=== PATIENT | male | born 1960 | race Caucasian/White ===

== ENCOUNTER 2017-03-10 22:50 | Emergency (ER) | payer MEDICAID, OTHER ==
[2017-03-11 00:48] VITALS: BMI 23.3
[2017-03-11 01:03] VITALS: BP 148/100; PULSE 63; RESP 18; TEMP 98; O2SAT 99
--- NOTE | 2017-03-11 01:31 | ED PDOC ---
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 pt denies any trauma or injury. denies fever/chills. pt states pain is worse with ambulation and flexion of the knee. pt c/o pressure sensation along the anterior and posterior aspect of the radiating into the posterior calf. no medications have been taking for pain at home. pt was on coumadin for prior dvt but coumadin was stopped 6 months ago. no other complaints. (Farzaneh Sam) Past Medical History - Provider Review Nursing Documentation Reviewed: Yes - Travel History Have you recently traveled outside [place] w/in the past 3 mons?: No - Past History Past History: No Previous - Infectious Disease Hx of Infectious Diseases: None - Tetanus Immunization Tetanus Immunization: Unknown - Past Medical History Past Medical History: Unable to Obtain - Neurological Other/Comment: Brain Aneurysm - Psychiatric Hx Substance Use: No - Past Surgical History Past Surgical History: Unable to Obtain - Surgical History Other/Comment: Brain aneurysm repair - Anesthesia Hx Anesthesia: Yes Hx Anesthesia Reactions: No Hx Malignant Hyperthermia: No - Suicidal Assessment Feels Threatened In Home Enviroment: No <Farzaneh Sam - Last Filed: 03/11/17 02:19> Family/Social History - Physician Review Nursing Documentation Reviewed: Yes Family/Social History: Unknown Family HX Smoking Status: Current Some Days Smoker Hx Alcohol Use: Yes Hx Substance Use: No <Farzaneh Sam - Last Filed: 03/11/17 02:19> Allergies/Home Meds <Farzaneh Sam - Last Filed: 03/11/17 02:19> <Allan Holliday - Last Filed: 03/11/17 02:55> Allergies/Adverse Reactions: Allergies No Known Allergies Allergy (Verified 07/19/15 10:42) Review of Systems - Review of Systems Constitutional: absent: Fatigue, Fevers Respiratory: absent: SOB, Cough Cardiovascular: absent: Chest Pain, Palpitations Gastrointestinal: absent: Abdominal Pain, Nausea, Vomiting Musculoskeletal: Arthralgias. absent: Back Pain, Neck Pain Skin: absent: Rash, Pruritis Neurological: absent: Headache, Dizziness Psychiatric: absent: Anxiety, Depression <Farzaneh Sam - Last Filed: 03/11/17 02:19> Physical Exam Vital Signs Reviewed: Yes Temperature: Afebrile Blood Pressure: Hypertensive Pulse: Regular Respiratory Rate: Normal Appearance: Positive for: Well-Appearing, Non-Toxic, Comfortable Pain Distress: None Mental Status: Positive for: Alert and Oriented X 3 - Systems Exam Head: Present: Atraumatic Neck: Present: Normal Range of Motion Respiratory/Chest: Present: Clear to Auscultation Cardiovascular: Present: Regular Rate and Rhythm, Normal S1, S2. No: Murmurs Upper Extremity: Present: Normal Inspection Lower Extremity: Present: NORMAL PULSES, Tenderness (left knee; + ttp over anterior and posterior aspect of th knee; + slight decreased flexion of knee; no erythema; no warmth. no calf tenderness, sensation and distal pulses intact; cap refill <2. ), Swelling, Neurovascularly Intact, Capillary Refill < 2 s. No : CALF TENDERNESS, Normal ROM, Erythema, Temperature Abnormalties Skin: Present: Warm, Dry, Normal Color. No: Rashes Psychiatric: Present: Alert, Oriented x 3 <Farzaneh Sam - Last Filed: 03/11/17 02:19> Vital Signs Temp Pulse Resp BP Pulse Ox 03/11/17 00:53 98 F 63 18 148/100 H 99 Medical Decision Making <Farzaneh Sam - Last Filed: 03/11/17 02:19> <Allan Holliday - Last Filed: 03/11/17 02:55> ED Course and Treatment: 03/11/17 01:30 Patient nontoxic well-appearing in no distress with stable vital signs. afebrile. left knee minimally swollen, no erythema; no warmth, slightly decreased flexion of knee; no signs of infection X-rays of the left knee: no fracture Venous duplex of the left leg: no dvt verbal report from [employer] Toradol IM Patient placed in knee immobilizer. Crutches given for ambulation I discussed all results with patient and family. advised to followup with the orthopedist for the next 2 days. Return if symptoms worsen persist or new symptoms develop i advised the patient that although the xrays show no fracture; there is still a possibility for ligamentous or tendon injury the patient must see the orthopedist for further evaluation. advised immediate return if swelling worsens, high fevers, increasing pain, calf swelling or if any other concerning symptoms develop. Patient/family verbalizes understanding of discharge instructions and need for immediate followup. all aspects of this case were discussed the attending of record. Impression: knee pain, knee effusion, leg pain Motrin every 6 hours as needed for pain Rest, ice, compression, elevation Use crutches for ambulation Followup with the orthopedist within the next 2 days Followup with primary care physician within the next 2 days Return if symptoms worsen persist or if new symptoms develop; high fevers, increasing pain, developing redness, worsening swelling to knee or calf or if nay other concerning symptoms develop. (Farzaneh Sam) - RAD Interpretation Radiology Orders: 03/11/17 00:58 KNEE WITH PATELLA LEFT 3 VIEW [RAD] Stat DUPLEX LOWER EXTRM VEIN LEFT [US] Stat - Medication Orders Current Medication Orders: Discontinued Medications Ketorolac Tromethamine (Toradol) 60 mg IM STAT STA Stop: 03/11/17 01:28 Last Admin: 03/11/17 02:19 Dose: 60 MG IM Administration Charges Document 03/11/17 02:19 EKEOO (Rec: 03/11/17 02:20 EKEOO [id number]) Injection Site MAR Injection Site Left Deltoid Charges for Administration # of IM Administrations 1 - PA / [employer] ADMINISTRATOR / Resident Statement / has reviewed & agrees with the documentation as recorded. <Allan Holliday - Last Filed: 03/11/17 02:55> Disposition/Present on Arrival - Present on Arrival Any Indicators Present on Arrival: No History of DVT/PE: No History of Uncontrolled Diabetes: No Urinary Catheter: No History of Decub. Ulcer: No History Surgical Site Infection Following: None - Disposition Have Diagnosis and Disposition been Completed?: Yes Disposition Time: 01:54 Patient Plan: Discharge <Farzaneh Sam - Last Filed: 03/11/17 02:19> <Allan Holliday - Last Filed: 03/11/17 02:55> - Disposition Diagnosis: Knee pain, Leg pain Disposition: HOME/ ROUTINE Condition: GOOD Discharge Instructions (ExitCare): Knee Pain (ED), Leg Pain (ED) Additional Instructions: Motrin every 6 hours as needed for pain Rest, ice, compression, elevation Use crutches for ambulation Followup with the orthopedist within the next 2 days Followup with primary care physician within the next 2 days Return if symptoms worsen persist or if new symptoms develop Prescriptions: Ibuprofen [Motrin] 600 mg PO Q6H PRN #20 tab PRN Reason: pain/fever reduction Referrals: Carrington Scott DO [Staff Provider] - Follow up with primary Jared Ferrer MD [Family Provider] - Follow up with primary [facility] [Outside] - Follow up with primary Forms: WORK NOTE
--- NOTE | 2017-03-11 08:44 | RAD ---
PROCEDURE: Left Knee Radiographs. HISTORY: Pain. COMPARISON: None. FINDINGS: BONES: Normal. No fracture. JOINTS: Normal. No osteoarthritis. JOINT EFFUSION: None. OTHER FINDINGS: The patella is unremarkable IMPRESSION: Normal radiographs of the left knee.
--- NOTE | 2017-03-11 18:54 | US ---
PROCEDURE: Left lower extremity venous US HISTORY: Leg pain and swelling. Evaluate for DVT. PHYSICIAN(S): Patricio Balderas MD. TECHNIQUE: Duplex sonography and color-flow Doppler with graded compression were used to evaluate the deep venous system of the left lower extremity. FINDINGS: The visualized deep venous system of the left lower extremity is sonographically normal and compressible. Normal wave forms and augmentation are seen. There is no sonographic evidence for deep venous thrombosis in the visualized segments of the left lower extremity. IMPRESSION: 1. No sonographic evidence for deep venous thrombosis in the visualized segments of the left lower extremity.
== END 2017-03-11 02:35 | disposition home or self-care (01) ==
LOC: ED 22:50
DX: M25.562 Pain in left knee (principal)
CPT/HCPCS: 73562; 93971; 96372; 99283; J1885